=== PATIENT | female | born 1975 | race Caucasian/White ===

== ENCOUNTER → 2016-06-29 | Outpatient (CLI) | payer BC ==
[~2016-06-29] MED LIST: AMOXICILLIN 8751 TAB PO; DESYREL 100MG100 MG PO; LAMICTAL150 MG PO; NEURONTIN800 MG/TAB PO; NORCO 325 MG-51 TAB PO; ZOFRAN ODT4 MG PO
== END ==
LOC: BHSO 14:55
DX: F33.2 Major depressive disorder, recurrent severe without psychotic features (principal)

== ENCOUNTER 2016-08-31 13:02 | Emergency (ER) | payer BC ==
[~2016-08-31] VITALS: Ht 165.1 cm; Wt 88.6 kg
[2016-08-31] MEDS ORDERED: DESYREL 100MG100 MG PO (13:08)
[2016-08-31] MEDS ORDERED: NEURONTIN800 MG/TAB PO (13:09)
[2016-08-31] MEDS ORDERED: LAMICTAL150 MG PO (13:09)
[2016-08-31 14:48] LABS: INFLUENZA B NEGATIVE
[2016-08-31 16:31] LABS: PH 7 (5-8); SQUAMOUS EPITHELIAL 0-2 /hpf; URINE APPEARANCE Clear; URINE BACTERIA Rare /hpf; URINE BILIRUBIN Negative (NEGATIVE); URINE BLOOD 1+ (NEGATIVE); URINE COLOR Straw; URINE GLUCOSE Negative (NEGATIVE); URINE KETONE Negative (NEGATIVE); URINE RBC 0-2 /hpf; URINE UROBILINOGEN Negative (NEGATIVE)
[2016-08-31] MEDS ORDERED: NORCO 325 MG-51 TAB PO (16:32)
[2016-08-31] MEDS ORDERED: AMOXICILLIN 8751 TAB PO (16:32)
[2016-08-31] MEDS ORDERED: ZOFRAN ODT4 MG PO (16:32)
[2016-08-31 17:31] LABS: CEREBROSPINAL TUBE #1; CSF COLOR PINK
[2016-08-31 17:32] LABS: CSF APPEARANCE CLEAR
[2016-08-31 17:33] LABS: CEREBROSPINAL TUBE #4; CSF APPEARANCE CLEAR; CSF COLOR COLORLESS
[2016-08-31 18:43] VITALS: BP 113/69; PULSE 78; TEMP 97.3
== END 2016-08-31 18:47 | disposition home or self-care (01) ==
LOC: COL.ER 13:02
PROVIDERS: Emergency Medicine
DX: R51 Headache (principal); R50.9 Fever, unspecified
CPT/HCPCS: J1170; J1885; J2550; J7030

== ENCOUNTER → 2016-08-31 | Outpatient (CLI) | payer BC ==
[2016-08-31 10:44] LABS: HEMATOCRIT 39.1 % (37.0-47.0); MEAN CELL VOLUME 90 fl (80.0-100.0); MEAN CORPUSCULAR HEMOGLOBIN 30 pg (27.0-31.0); MEAN CORPUSCULAR HGB CONC 33 g/dl (33.0-37.0); MEAN PLATELET VOLUME 9.9 fl (7.4-10.4); PLATELET COUNT 316 K/mm3 (130-400); RED BLOOD COUNT 4.33 M/mm3 (4.10-5.30); REDCELL DISTRIBUTION WIDTH-CV 12.3 % (11.5-14.5); WHITE BLOOD COUNT 15.3 K/mm3 (4.8-10.8)
[2016-08-31 10:50] LABS: ADJUSTED CALCIUM 9.3 mg/dL (8.4-10.2); ALBUMIN 3.7 gm/dL (3.5-5.0); BILIRUBIN,TOTAL 0.6 mg/dL (0.0-1.0); CALCIUM 9.1 mg/dL (8.4-10.2); CREATININE, serum 0.75 mg/dL (0.52-1.25); POTASSIUM 3.7 mmol/L (3.4-5.0); TOTAL PROTEIN 6.8 gm/dL (6.4-8.2)
[2016-08-31 11:01] LABS: ADD PATHOLOGY DIFF REVIEW NO
[2016-08-31 11:18] LABS: C-REACTIVE PROTEIN 12.2 mg/dL (0.0-0.9)
[2016-08-31 11:32] LABS: BAND 14 % (0-10); NEUTROPHILS 64 % (42.0-75.2); TOTAL CELLS COUNTED 100
[2016-08-31 11:33] LABS: PLATELET ESTIMATE NORMAL (NORMAL)
[2016-08-31 12:58] LABS: ERYTHROCYTE SEDIMENTATION RATE 34 mm/hr (0-20)
== END ==
LOC: COL.RAD 08:52
PROVIDERS: Family Medicine
DX: R50.9 Fever, unspecified (principal); R06.02 Shortness of breath

== ENCOUNTER → 2016-10-08 | Outpatient (CLI) | payer BC | LOC: BHSO 07:57 | DX: F31.81 Bipolar II disorder (principal) ==

== ENCOUNTER → 2016-11-02 | Outpatient (CLI) | payer BC | LOC: BHSO 08:17 | DX: F31.81 Bipolar II disorder (principal) ==

== ENCOUNTER → 2017-01-12 | Outpatient (CLI) | payer BC | LOC: BHSO 07:57 | DX: F31.81 Bipolar II disorder (principal) ==